=== PATIENT | male | born 1965 ===

== ENCOUNTER 2025-04-15 13:48 | Outpatient (CLI) | payer SELFPAY ==
--- NOTE | 2025-04-15 14:12 | XR_ITS ---
WS: [id number] Left hand, 3 views, 04/15/2025 Clinical Data: ARTHRITIS Comparison: None. Findings: No fractures or dislocations are seen. The soft tissues are unremarkable. The joint spaces are normal No significant periarticular demineralization or calcifications are seen. XR/XR hand LT min 3V* [id number] Impression: Negative left hand.
--- NOTE | 2025-04-15 14:24 | XR_ITS ---
WS: [id number] Right hand, 3 views, 04/15/2025 Clinical Data: ARTHRITIS Comparison: None. Findings: No fractures or dislocations are seen. The soft tissues are unremarkable. The joint spaces are normal No significant periarticular demineralization or calcifications are seen. There is vascular calcification. XR/XR hand RT min 3V* [id number] Impression: Negative right hand.
== END 2025-04-15 13:49 | disposition home or self-care (01) ==
PROVIDERS: PCP Family Medicine; Visit Provider Family Medicine
DX: M79.642 Pain in left hand (principal); M79.641 Pain in right hand; M12.849 Other specific arthropathies, not elsewhere classified, unspecified hand; I70.90 Unspecified atherosclerosis
CPT/HCPCS: 73130